=== PATIENT | male | born 1975 | race Asian ===

== ENCOUNTER → 2020-06-01 | Outpatient (CLI) | payer BC | LOC: COL.RAD 14:00 | DX: R91.8 Other nonspecific abnormal finding of lung field (principal); R04.2 Hemoptysis ==

== ENCOUNTER → 2020-12-19 | Outpatient (CLI) | payer BC | LOC: ZCOL.LAB 11:21 | DX: Z20.822 Contact with and (suspected) exposure to COVID-19 (principal) ==